=== PATIENT | male | born 1975 | race Caucasian/White ===

== ENCOUNTER 2024-09-15 16:44 | Emergency (ER) | payer OTHER ==
[~2024-09-15] VITALS: Ht 180.3 cm; Wt 100.0 kg
[2024-09-15 16:50] VITALS: BP 116/78; PULSE 100; RESP 16; TEMP 98.2; O2SAT 100
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
== END 2024-09-15 17:26 ==
LOC: ER 16:46
DX: S00.83XA Contusion of other part of head, initial encounter (principal); V89.2XXA Person injured in unspecified motor-vehicle accident, traffic, initial encounter; Y92.410 Unspecified street and highway as the place of occurrence of the external cause; Y93.89 Activity, other specified; Y99.8 Other external cause status
CPT/HCPCS: 99283